=== PATIENT | female | born 1960 | race Caucasian/White ===

== ENCOUNTER 2021-02-05 14:10 | Emergency (ER) | payer MEDICARE, MEDICAID ==
[~2021-02-05] VITALS: Ht 154.9 cm; Wt 102.7 kg
[2021-02-05] MEDS ORDERED: BACTRIM DS1 TAB PO (15:47)
[2021-02-05] MEDS ORDERED: KEFLEX500 M1 PO (15:47)
[2021-02-05 15:55] VITALS: BP 118/79
== END 2021-02-05 16:03 | disposition home or self-care (01) ==
LOC: ED 14:10
PROC: 0H9T0ZZ Drainage of Right Breast, Open Approach (ICD-10-PCS; principal; 2021-02-05)
DX: N61.1 Abscess of the breast and nipple (principal); I10 Essential (primary) hypertension; E11.40 Type 2 diabetes mellitus with diabetic neuropathy, unspecified; J44.9 Chronic obstructive pulmonary disease, unspecified; F32.9 Major depressive disorder, single episode, unspecified

== ENCOUNTER 2021-02-07 09:51 | Emergency (ER) | payer MEDICARE, MEDICAID ==
[~2021-02-07] VITALS: Ht 154.9 cm; Wt 100.0 kg
[~2021-02-07 09:51] MED LIST: BACTRIM DS1 TAB PO; KEFLEX500 M1 PO
[2021-02-07 10:46] VITALS: BP 131/66
== END 2021-02-07 10:46 | disposition home or self-care (01) ==
LOC: ED 09:51
DX: Z48.01 Encounter for change or removal of surgical wound dressing (principal); I10 Essential (primary) hypertension; E11.40 Type 2 diabetes mellitus with diabetic neuropathy, unspecified; J44.9 Chronic obstructive pulmonary disease, unspecified; F32.9 Major depressive disorder, single episode, unspecified; E11.9 Type 2 diabetes mellitus without complications; E78.49 Other hyperlipidemia

== ENCOUNTER 2022-05-03 07:22 | Observation (INO) | payer MEDICARE, MEDICAID ==
[~2022-05-03] VITALS: Ht 157.5 cm; Wt 90.0 kg
[2022-05-03] VITALS (11 sets, daily range): BP systolic 130–147; BP diastolic 73–88
[~2022-05-03 07:22] MED LIST changes: +ALBUTEROL SUL0.083 % IN; +ASPIRIN81 MG PO; +CLONAZEP ODT1 MG PO; +GABAPENTIN300 M2 PO; +GLIPIZIDE ER10 M1 PO; +KAPSPARGO SPRIN50 MG PO; +LEVOTHYROXINE137 MC1 PO; +LIPITOR10 M1 PO; +MECLIZINE25 MG PO; +MELOXICAM15 MG PO; +METFORMIN HCL1000 MG PO; +OZEMPIC2 MG/1.5 M IJ; +PANTOPRAZOLE SO40 M1 PO; +PAXIL30 MG PO; +PERCOCET 5/325M1 TAB PO; +WOMENS MULTIVIT1 TAB PO; +ZESTRIL10 M1 PO
--- NOTE | 2022-05-03 18:11 | NUR ---
PATIENT STABLE AT THIS TIME. SPIROMETRY INSENTIVE DONE
--- NOTE | 2022-05-03 19:25 | NUR ---
RECEIVED REPORT FROM DAY TIME NURSE. AFTER ASSESSMENT PATIENT WAS ENCOURAGED TO GET OUT OF BED. PATIENT IS ABLE TO MOVE WITH MIN ASSISTANCE. PATIENT WAS ABLE TO CLEAN HERSELF AFTER URINATING. PATIENT STATED THAT HER PAIN LEVEL WENT UP TO 8/10 AFTER MOVING AROUND IN THE ROOM. PRN PAIN MED GIVEN. SURGICAL DRESSING INTACT WITH NO DRAINAGE. WILL CONTINUE TO MONITOR.
--- NOTE | 2022-05-04 00:55 | NUR ---
PATIENT STATED THAT AFTER IV PAIN MED SHE IS HAVING ZERO PAIN. NURSE CHECKED ON PATIENT. PATIENT IS SLEEPING SO SCHEDULED KETOROLAC WAS NOT GIVEN. WILL CONTINUE TO MONITOR.
[2022-05-04 04:33] VITALS: BP 129/79
--- NOTE | 2022-05-04 06:33 | NUR ---
PATIENT INFORMED NURSE OF HAVING NAUSEA AND PAIN. NURSE GAVE ZOFRAN AND TORADOL. WILL CONTINUE TO MONITOR.
[2022-05-04 07:27] VITALS: BP 144/71
[2022-05-04 08:00] VITALS: BP 144/71
--- NOTE | 2022-05-04 08:00 | NUR ---
RESTING QUIETLY IN ROOM, NO SIGNS OR SYMPTOMS OF DISTRESS NOTED OR VOICED.
[2022-05-04] MEDS ORDERED: PERCOCET 5/325M1 TAB PO (09:07)
--- NOTE | 2022-05-04 09:31 | NUR ---
PATIENT DISCHARGING HOME IN STABLE CONDITION, IV REMOVED, DISCHARGE INSTRUCTIONS GONE OVER AND UNDERSTANDING VERBALIZED.
== END 2022-05-04 09:30 | disposition home or self-care (01) ==
LOC: ORM 07:22 → MS2 11:30
PROVIDERS: ADMIT Surgery; ATTEND Surgery
PROC: 0WUF0JZ Supplement Abdominal Wall with Synthetic Substitute, Open Approach (ICD-10-PCS; principal; 2022-05-03)
DX: K43.0 Incisional hernia with obstruction, without gangrene (principal); I10 Essential (primary) hypertension; E11.9 Type 2 diabetes mellitus without complications; J44.9 Chronic obstructive pulmonary disease, unspecified; Z79.84 Long term (current) use of oral hypoglycemic drugs
CPT/HCPCS: J0131

== ENCOUNTER 2022-12-03 16:13 | Emergency (ER) | payer OTHER, MEDICARE, MEDICAID ==
[~2022-12-03] VITALS: Ht 157.5 cm; Wt 85.7 kg
[2022-12-03] VITALS (10 sets, daily range): BP systolic 129–160; BP diastolic 61–90
[2022-12-03 17:58] LABS: BASO% 0.4 % (0-3); EOS% 1.5 % (0-8); HEMATOCRIT 41.4 % (37.0-47.0); HEMOGLOBIN 14.1 g/dl (12.0-16.0); IMMATURE GRANULOCYTES 0.3 % (0.0-5.0); LYMPH% 17.3 % (15-41); MEAN CELL VOLUME 86.1 fL CALC (80.0-100.0); MEAN CORPUSCULAR HGB 29.3 pG CALC (26.0-32.0); MEAN CORPUSCULAR HGB CONC 34.1 g/dL CAL (32.0-36.0); MONO% 4.7 % (2-13); NEUT# 7.82 thou/uL (2.00-7.15); NEUT% 75.8 % (42-76); RED BLOOD COUNT 4.81 mill/uL (4.20-5.60); RED CELL DISTRI WIDTH 12.5 % (11.5-15.5)
[2022-12-03 18:03] LABS: ALBUMIN 4.2 g/dL (3.2-5.0); ALKALINE PHOSPHATASE 151 u/l (38-126); ANION GAP 11 (6-22 (CALC)); BILIRUBIN, TOTAL 0.3 mg/dL (0.0-1.4); BUN 16 mg/dL (8-23); BUN/CREATININE RATIO 20 (12-20 (CALC)); CARBON DIOXIDE 25 mmol/l (22-30); CHLORIDE 104 mmol/l (95-108); CREATININE 0.8 mg/dL (0.5-1.0); GFR FOR AFR.AMER. > 60 ML/MIN (>=60 (CALC)); GFR OTHER RACES > 60 ML/MIN (>=60 (CALC)); POTASSIUM 4.1 mmol/l (3.5-5.1); SGOT/AST 26 u/l (9-36); SODIUM 136 mmol/l (137-146); TOTAL PROTEIN 7.6 g/dL (6.3-8.2)
== END 2022-12-03 19:45 | disposition home or self-care (01) | DRG 313 ==
LOC: ED 16:13
PROVIDERS: Family Medicine
DX: R07.89 Other chest pain (principal); M54.2 Cervicalgia; V43.62XA Car passenger injured in collision with other type car in traffic accident, initial encounter